=== PATIENT | male | born 1980 | race Caucasian/White ===

== ENCOUNTER 2022-04-15 12:42 | Emergency (ER) | payer BC, OTHER ==
[2022-04-15] MEDS ORDERED: Dexamethasone 10 MG/ML VIAL ONE (13:13)
[2022-04-15] MEDS ORDERED: Bicillin LA 1.2 MILLION UNITS/2 ML SYRINGE ONE (13:14)
[2022-04-15] MEDS ORDERED: Ibuprofen 200 MG TAB ONE (13:14)
[2022-04-15] MEDS ORDERED: Acetaminophen 500 MG TAB ONE (13:25)
== END 2022-04-15 13:35 | disposition home or self-care (01) ==
LOC: CSHERS 12:42
DX: J02.0 Streptococcal pharyngitis (principal)
CPT/HCPCS: 96372; 99283; J0561; J1100